=== PATIENT | female | born 1945 | race Caucasian/White ===

== ENCOUNTER 2018-01-23 10:45 | Inpatient (IN) | payer OTHER, MEDICAID, MEDICARE ==
[2018-01-23 11:59] LABS: ADD MAN DIFF? NO; BASOPHILS % 0.3 % (0.0-2.0); EOSINOPHILS # 0.2 10^3/ul (0.0-0.5); EOSINOPHILS % 2.4 % (0.0-7.0); HEMATOCRIT 36.9 % (37.0-47.0); HEMOGLOBIN 12.7 g/dl (12.0-16.0); LYMPHOCYTES # 0.6 10^3/ul (0.8-2.9); LYMPHOCYTES % 6.5 % (15.0-51.0); MEAN CORPUSCULAR HEMOGLOBIN 30.8 pg (29.0-33.0); MEAN CORPUSCULAR HGB CONC 34.4 g/dl (32.0-37.0); MEAN CORPUSCULAR VOLUME 89.6 fl (82.0-101.0); MEAN PLATELET VOLUME 8.4 fl (7.4-10.4); MONOCYTE # 0.6 10^3/ul (0.3-0.9); MONOCYTES % 6.1 % (0.0-11.0); NEUTROPHIL # 8.3 10^3/ul (1.6-7.5); NEUTROPHILS % 84.3 % (39.0-77.0); PLATELET COUNT 312 10^3/UL (140-415); RED BLOOD COUNT 4.12 10^6/ul (4.20-5.40); RED CELL DISTRIBUTION WIDTH 13.2 % (11.5-14.5)
[2018-01-23 11:59] LABS: WHITE BLOOD COUNT 9.8 10^3/ul (4.8-10.8)
[2018-01-23 12:22] LABS: INR 1.02; PROTIME 13.5 Sec (11.9-14.9); PT RATIO 1.1
[2018-01-23 12:23] LABS: PARTIAL THROMBOPLASTIN TIME 26.8 Sec (25.0-35.0)
[2018-01-23 12:26] LABS: ALANINE AMINOTRANSFERASE 45 IU/L (13-69); ALBUMIN 3.9 g/dl (3.3-4.9); ALBUMIN/GLOBULIN RATIO 1.18; ALKALINE PHOSPHATASE 92 IU/L (42-121); ANION GAP 21 (8-16); ASPARTATE AMINO TRANSFERASE 47 IU/L (15-46); BILIRUBIN,INDIRECT 0.1 mg/dl (0-1.1); BILIRUBIN,TOTAL 0.1 mg/dl (0.2-1.3); BLOOD UREA NITROGEN 80 mg/dl (7-20); CALCIUM 9.6 mg/dl (8.4-10.2); CARBON DIOXIDE 17 mmol/L (21-31); CHLORIDE 100 mmol/L (97-110); CREATININE 11.31 mg/dl (0.44-1.00); GLUCOSE 99 mg/dl (70-220); LIPASE 58 U/L (23-300); POTASSIUM 5.8 mmol/L (3.5-5.1); SODIUM 132 mmol/L (135-144); TOTAL PROTEIN 7.2 g/dl (6.1-8.1)
[2018-01-23 12:36] LABS: TROPONIN-I < 0.010 ng/ml (0.000-0.120)
[2018-01-23] MEDS: LACTATED RINGER'S 1,000 ML IV ×2 (12:38→17:45)
[2018-01-23] MEDS: ALBUTEROL 0.083% (NEB) 2.5 MG/3 ML AMP HHN (13:42)
[2018-01-23] MEDS: DEXTROSE 50% 50 ML SYRINGE IV (15:47)
[2018-01-23] MEDS: INSULIN REGULAR, HUMAN 100 UNIT/1 ML 3ML VIAL IVP (15:52)
[2018-01-23] MEDS: CEFTRIAXONE 1 GM/50 ML (PMX) 50 ML IVPB (15:52)
[2018-01-23] MEDS: TOLTERODINE (SR) 4 MG CAP PO (16:30)
[2018-01-23] MEDS ORDERED: morphine 2 MG INJ IV (17:00)
[2018-01-23] MEDS ORDERED: NACL 0.9% 3 ML SYG IV (17:00)
[2018-01-23] MEDS ORDERED: BISACODYL 10 MG SUPP PR (17:00)
[2018-01-23] MEDS ORDERED: DOCUSATE SODIUM 100 MG CAP PO (17:00)
[2018-01-23 18:25] LABS: ANION GAP 17 (8-16); BLOOD UREA NITROGEN 80 mg/dl (7-20); CARBON DIOXIDE 17 mmol/L (21-31); CHLORIDE 102 mmol/L (97-110); CREATININE 11.07 mg/dl (0.44-1.00); GLUCOSE 63 mg/dl (70-220); POTASSIUM 5.8 mmol/L (3.5-5.1); SODIUM 130 mmol/L (135-144)
[2018-01-23] MEDS: ACETAMINOPHEN 325 MG TAB PO (20:03)
[2018-01-23] MEDS: ONDANSETRON 4 MG INJ IV (20:06)
[2018-01-23] MEDS: ATORVASTATIN 10 MG TAB PO (22:18)
[2018-01-24] MEDS: ONDANSETRON 4 MG INJ IV ×2 (02:56→18:57)
[2018-01-24] MEDS: PANTOPRAZOLE (EC) 40 MG TAB PO (06:00)
[2018-01-24 07:36] LABS: ADD MAN DIFF? NO
[2018-01-24 07:43] LABS: WHITE BLOOD COUNT 8.3 10^3/ul (4.8-10.8)
[2018-01-24 07:43] LABS: BASOPHILS % 0.4 % (0.0-2.0); EOSINOPHILS # 0.2 10^3/ul (0.0-0.5); EOSINOPHILS % 2.8 % (0.0-7.0); HEMATOCRIT 33.2 % (37.0-47.0); HEMOGLOBIN 11.1 g/dl (12.0-16.0); LYMPHOCYTES # 0.9 10^3/ul (0.8-2.9); LYMPHOCYTES % 10.8 % (15.0-51.0); MEAN CORPUSCULAR HEMOGLOBIN 30.2 pg (29.0-33.0); MEAN CORPUSCULAR HGB CONC 33.4 g/dl (32.0-37.0); MEAN CORPUSCULAR VOLUME 90.5 fl (82.0-101.0); MONOCYTE # 0.7 10^3/ul (0.3-0.9); MONOCYTES % 8.6 % (0.0-11.0); NEUTROPHIL # 6.4 10^3/ul (1.6-7.5); NEUTROPHILS % 76.9 % (39.0-77.0); PLATELET COUNT 297 10^3/UL (140-415); RED BLOOD COUNT 3.67 10^6/ul (4.20-5.40); RED CELL DISTRIBUTION WIDTH 13.4 % (11.5-14.5)
[2018-01-24] MEDS ORDERED: POLYMYXIN/BACITRACIN 1L IRRIG (07:46)
[2018-01-24 08:10] LABS: ALANINE AMINOTRANSFERASE 40 IU/L (13-69); ALBUMIN 3.2 g/dl (3.3-4.9); ALBUMIN/GLOBULIN RATIO 1.23; ALKALINE PHOSPHATASE 77 IU/L (42-121); ANION GAP 20 (8-16); ASPARTATE AMINO TRANSFERASE 37 IU/L (15-46); BLOOD UREA NITROGEN 82 mg/dl (7-20); CARBON DIOXIDE 15 mmol/L (21-31); CHLORIDE 104 mmol/L (97-110); GLUCOSE 59 mg/dl (70-220); MAGNESIUM 2.2 mg/dl (1.7-2.5); SODIUM 133 mmol/L (135-144); TOTAL PROTEIN 5.8 g/dl (6.1-8.1)
[2018-01-24 08:26] LABS: POTASSIUM 5.7 mmol/L (3.5-5.1)
[2018-01-24] MEDS: TOLTERODINE (SR) 4 MG CAP PO (09:00)
[2018-01-24] MEDS: IODIXANOL LOCM 100 ML BTL (10:09)
[2018-01-24] MEDS: DEXTROSE 50% 50 ML SYRINGE IV (10:16)
[2018-01-24] MEDS: MIDAZOLAM 1 MG/ML 2 ML INJ (10:55)
[2018-01-24] MEDS: FENTAnyl 50 MCG/ML VIAL (10:55)
[2018-01-24] MEDS: LIDOCAINE 2% (SDV) 5 ML INJ (10:55)
[2018-01-24] MEDS: PROPOFOL 20 ML (10:55)
[2018-01-24] MEDS: CEFAZOLIN 1 GM/50 ML (PMX) 50 ML IVPB (11:18)
[2018-01-24] MEDS: LIDOCAINE 1%/EPI 30 ML INJ (11:18)
[2018-01-24 13:13] LABS: ADD UMIC YES; UR ASCORBIC ACID NEGATIVE (NEGATIVE); UR BACTERIA MODERATE /HPF (NONE SEEN); UR BILIRUBIN (Dip) NEGATIVE (NEGATIVE); UR BLOOD (Dip) 2+ mg/dL (NEGATIVE); UR CLARITY CLOUDY (CLEAR); UR COLOR RED (YELLOW); UR GLUCOSE (Dip) 1+ mg/dL (NEGATIVE); UR KETONES (Dip) NEGATIVE (NEGATIVE); UR LEUKOCYTE ESTERASE (Dip) NEGATIVE Leu/ul (NEGATIVE); UR NITRITE (Dip) POSITIVE (NEGATIVE); UR NONSQUAMOUS EPITHELIAL CELL 4 /HPF (NONE SEEN); UR RBC > 182 /HPF (0-5); UR SPECIFIC GRAVITY (Dip) 1.033 (1.003-1.030); UR TOTAL PROTEIN (Dip) 2+ mg/dl (NEGATIVE); UR UROBILINOGEN (Dip) NEGATIVE (NEGATIVE); UR WBC > 182 /HPF (0-5)
[2018-01-24] MEDS: LACTATED RINGER'S 1,000 ML IV (15:13)
[2018-01-24] MEDS: CEFTRIAXONE 1 GM/50 ML (PMX) 50 ML IVPB (17:23)
[2018-01-24] MEDS: ATORVASTATIN 10 MG TAB PO (21:04)
[2018-01-25] MEDS: PANTOPRAZOLE (EC) 40 MG TAB PO (05:26)
[2018-01-25] MEDS: SOD CHLORIDE 0.9% 1,000 ML IV ×2 (07:06→17:15)
[2018-01-25 07:29] LABS: ADD MAN DIFF? NO
[2018-01-25 07:37] LABS: WHITE BLOOD COUNT 7.6 10^3/ul (4.8-10.8)
[2018-01-25 07:37] LABS: BASOPHILS % 0.5 % (0.0-2.0); EOSINOPHILS # 0.2 10^3/ul (0.0-0.5); EOSINOPHILS % 2.6 % (0.0-7.0); HEMATOCRIT 36.3 % (37.0-47.0); LYMPHOCYTES # 0.9 10^3/ul (0.8-2.9); MEAN CORPUSCULAR HEMOGLOBIN 29.6 pg (29.0-33.0); MEAN CORPUSCULAR HGB CONC 33.1 g/dl (32.0-37.0); MEAN CORPUSCULAR VOLUME 89.4 fl (82.0-101.0); MEAN PLATELET VOLUME 8.6 fl (7.4-10.4); MONOCYTE # 0.6 10^3/ul (0.3-0.9); MONOCYTES % 8.5 % (0.0-11.0); NEUTROPHIL # 5.8 10^3/ul (1.6-7.5); PLATELET COUNT 298 10^3/UL (140-415); RED BLOOD COUNT 4.06 10^6/ul (4.20-5.40); RED CELL DISTRIBUTION WIDTH 13.7 % (11.5-14.5)
[2018-01-25 07:59] LABS: ANION GAP 19 (8-16); BLOOD UREA NITROGEN 67 mg/dl (7-20); CALCIUM 9.2 mg/dl (8.4-10.2); CARBON DIOXIDE 17 mmol/L (21-31); CHLORIDE 109 mmol/L (97-110); CREATININE 8.63 mg/dl (0.44-1.00); GLUCOSE 78 mg/dl (70-220); POTASSIUM 5.2 mmol/L (3.5-5.1); SODIUM 140 mmol/L (135-144)
[2018-01-25 08:01] LABS: PHOSPHORUS 7.3 mg/dl (2.5-4.9)
[2018-01-25 08:01] LABS: MAGNESIUM 1.9 mg/dl (1.7-2.5)
[2018-01-25] MEDS: TOLTERODINE (SR) 4 MG CAP PO (09:03)
[2018-01-25] MEDS: CEFTRIAXONE 1 GM/50 ML (PMX) 50 ML IVPB (17:15)
[2018-01-25] MEDS: SEVELAMER CARBONATE 800 MG TABLET PO (17:15)
[2018-01-25] MEDS: ACETAMINOPHEN 325 MG TAB PO (17:18)
[2018-01-25] MEDS: ATORVASTATIN 10 MG TAB PO (21:27)
[2018-01-26] MEDS: SOD CHLORIDE 0.9% 1,000 ML IV ×3 (02:17→21:54)
[2018-01-26] MEDS: PANTOPRAZOLE (EC) 40 MG TAB PO (06:20)
[2018-01-26 08:08] LABS: ADD MAN DIFF? NO
[2018-01-26 08:18] LABS: WHITE BLOOD COUNT 9.3 10^3/ul (4.8-10.8)
[2018-01-26 08:18] LABS: BASOPHILS % 0.4 % (0.0-2.0); EOSINOPHILS # 0.2 10^3/ul (0.0-0.5); EOSINOPHILS % 2.5 % (0.0-7.0); HEMATOCRIT 35.8 % (37.0-47.0); HEMOGLOBIN 11.8 g/dl (12.0-16.0); LYMPHOCYTES # 0.9 10^3/ul (0.8-2.9); LYMPHOCYTES % 9.3 % (15.0-51.0); MEAN CORPUSCULAR HEMOGLOBIN 29.9 pg (29.0-33.0); MEAN CORPUSCULAR VOLUME 90.9 fl (82.0-101.0); MEAN PLATELET VOLUME 8.6 fl (7.4-10.4); MONOCYTE # 0.7 10^3/ul (0.3-0.9); MONOCYTES % 7.5 % (0.0-11.0); NEUTROPHIL # 7.4 10^3/ul (1.6-7.5); NEUTROPHILS % 79.9 % (39.0-77.0); PLATELET COUNT 294 10^3/UL (140-415); RED BLOOD COUNT 3.94 10^6/ul (4.20-5.40); RED CELL DISTRIBUTION WIDTH 13.5 % (11.5-14.5)
[2018-01-26 08:43] LABS: ANION GAP 14 (8-16); BLOOD UREA NITROGEN 53 mg/dl (7-20); CARBON DIOXIDE 16 mmol/L (21-31); CHLORIDE 113 mmol/L (97-110); CREATININE 6.62 mg/dl (0.44-1.00); GLUCOSE 79 mg/dl (70-220); MAGNESIUM 1.6 mg/dl (1.7-2.5); SODIUM 138 mmol/L (135-144)
[2018-01-26] MEDS: TOLTERODINE (SR) 4 MG CAP PO (08:44)
[2018-01-26] MEDS: SEVELAMER CARBONATE 800 MG TABLET PO (08:44)
[2018-01-26] MEDS: MAGNESIUM OXIDE 400 MG TAB PO (14:21)
[2018-01-26] MEDS: ACETAMINOPHEN 325 MG TAB PO (14:26)
[2018-01-26] MEDS: CEFTRIAXONE 1 GM/50 ML (PMX) 50 ML IVPB (17:05)
[2018-01-26] MEDS: ATORVASTATIN 10 MG TAB PO (21:54)
[2018-01-27] MEDS: SOD CHLORIDE 0.9% 1,000 ML IV ×3 (02:00→18:30)
[2018-01-27] MEDS: PANTOPRAZOLE (EC) 40 MG TAB PO (06:04)
[2018-01-27] MEDS: TOLTERODINE (SR) 4 MG CAP PO (09:10)
[2018-01-27 09:58] LABS: MAGNESIUM 1.5 mg/dl (1.7-2.5)
[2018-01-27 09:59] LABS: ANION GAP 15 (8-16); BLOOD UREA NITROGEN 41 mg/dl (7-20); CALCIUM 8.9 mg/dl (8.4-10.2); CARBON DIOXIDE 17 mmol/L (21-31); CHLORIDE 113 mmol/L (97-110); CREATININE 4.14 mg/dl (0.44-1.00); GLUCOSE 59 mg/dl (70-220); POTASSIUM 5.5 mmol/L (3.5-5.1); SODIUM 139 mmol/L (135-144)
[2018-01-27] MEDS: MAGNESIUM SULFATE 3 GM in DEXTROSE 5% 100 ML IVPB (17:17)
[2018-01-27] MEDS: ACETAMINOPHEN 325 MG TAB PO (17:25)
[2018-01-27] MEDS: ATORVASTATIN 10 MG TAB PO (21:00)
[2018-01-28] MEDS: ACETAMINOPHEN 325 MG TAB PO (03:03)
[2018-01-28] MEDS: ONDANSETRON 4 MG INJ IV (03:03)
[2018-01-28] MEDS: SOD CHLORIDE 0.9% 1,000 ML IV ×2 (04:43→13:39)
[2018-01-28] MEDS: PANTOPRAZOLE (EC) 40 MG TAB PO (06:17)
[2018-01-28 08:28] LABS: MAGNESIUM 2.4 mg/dl (1.7-2.5)
[2018-01-28 08:32] LABS: ANION GAP 11 (8-16); BLOOD UREA NITROGEN 29 mg/dl (7-20); CALCIUM 8.6 mg/dl (8.4-10.2); CARBON DIOXIDE 18 mmol/L (21-31); CHLORIDE 111 mmol/L (97-110); CREATININE 2.89 mg/dl (0.44-1.00); GLUCOSE 104 mg/dl (70-220); POTASSIUM 4.4 mmol/L (3.5-5.1); SODIUM 136 mmol/L (135-144)
[2018-01-28] MEDS ORDERED: POTASSIUM CHLORIDE (SR) 20 MEQ TAB PO (08:42)
[2018-01-28] MEDS: morphine LIQ (10 MG/5 ML) CUP PO (11:17)
[2018-01-28] MEDS: TOLTERODINE (SR) 4 MG CAP PO (11:17)
[2018-01-28] MEDS: ERGOCALCIFEROL 50,000 UNIT CAP PO (11:17)
[2018-01-28] MEDS: DEXTROSE 5%-0.45% NACL 1,000 ML IV (18:00)
[2018-01-28] MEDS ORDERED: MIDAZOLAM 1 MG/ML 2 ML INJ (19:53)
[2018-01-28] MEDS ORDERED: CEFAZOLIN 1 GM INJ (19:53)
[2018-01-28] MEDS ORDERED: PROPOFOL 20 ML (19:53)
[2018-01-28] MEDS ORDERED: FENTAnyl 50 MCG/ML VIAL (19:53)
[2018-01-28] MEDS ORDERED: PHENYLephrine (100 MCG/ML) 5ML SYG (20:06)
[2018-01-28] MEDS ORDERED: ONDANSETRON 4 MG INJ (20:29)
[2018-01-28] MEDS ORDERED: DEXAMETHASONE 4 MG/ML 1 ML INJ (20:29)
[2018-01-28] MEDS ORDERED: EPHEDrine SULFATE 50 MG/5 ML SYG IV (20:30)
[2018-01-28] MEDS ORDERED: hydrALAzine 20 MG INJ IV (20:30)
[2018-01-28] MEDS ORDERED: IPRATROPIUM (NEB) 0.5 MG/2.5 ML AMP HHN (20:30)
[2018-01-28] MEDS ORDERED: HYDROmorphONE 1 MG/5 ML IV SYRINGE IV ×2 (20:30)
[2018-01-28] MEDS ORDERED: ONDANSETRON 4 MG INJ IV (20:30)
[2018-01-28] MEDS ORDERED: FENTAnyl 50 MCG/ML VIAL IV ×3 (20:30)
[2018-01-28] MEDS ORDERED: LABETALOL HCL 20MG INJ IV (20:30)
[2018-01-28] MEDS ORDERED: ALBUTEROL 0.083% (NEB) 2.5 MG/3 ML AMP HHN (20:30)
[2018-01-28] MEDS ORDERED: EPHEDrine 25 MG/5 ML SYG (20:33)
[2018-01-28] MEDS: ATORVASTATIN 10 MG TAB PO (22:57)
[2018-01-29] MEDS: DEXTROSE 5%-0.45% NACL 1,000 ML IV ×4 (01:10→21:30)
[2018-01-29] MEDS: PANTOPRAZOLE (EC) 40 MG TAB PO (05:12)
[2018-01-29 07:28] LABS: ADD MAN DIFF? NO
[2018-01-29 07:37] LABS: WHITE BLOOD COUNT 9.4 10^3/ul (4.8-10.8)
[2018-01-29 07:37] LABS: ABNORMAL IP MESSAGE 1; BASOPHILS % 0.1 % (0.0-2.0); HEMATOCRIT 33.7 % (37.0-47.0); HEMOGLOBIN 11.1 g/dl (12.0-16.0); LYMPHOCYTES # 0.3 10^3/ul (0.8-2.9); LYMPHOCYTES % 3.1 % (15.0-51.0); MEAN CORPUSCULAR HEMOGLOBIN 29.8 pg (29.0-33.0); MEAN CORPUSCULAR HGB CONC 32.9 g/dl (32.0-37.0); MEAN CORPUSCULAR VOLUME 90.3 fl (82.0-101.0); MEAN PLATELET VOLUME 8.5 fl (7.4-10.4); MONOCYTE # 0.6 10^3/ul (0.3-0.9); MONOCYTES % 6.4 % (0.0-11.0); NEUTROPHIL # 8.4 10^3/ul (1.6-7.5); NEUTROPHILS % 89.8 % (39.0-77.0); PLATELET COUNT 206 10^3/UL (140-415); RED BLOOD COUNT 3.73 10^6/ul (4.20-5.40); RED CELL DISTRIBUTION WIDTH 13.7 % (11.5-14.5)
[2018-01-29 07:50] LABS: POSITIVE DIFF @See below
[2018-01-29 08:08] LABS: ANION GAP 14 (8-16); BLOOD UREA NITROGEN 32 mg/dl (7-20); CALCIUM 8.8 mg/dl (8.4-10.2); CARBON DIOXIDE 18 mmol/L (21-31); CHLORIDE 107 mmol/L (97-110); CREATININE 3.79 mg/dl (0.44-1.00); GLUCOSE 188 mg/dl (70-220); POTASSIUM 5.2 mmol/L (3.5-5.1); SODIUM 134 mmol/L (135-144)
[2018-01-29] MEDS: TOLTERODINE (SR) 4 MG CAP PO (08:31)
[2018-01-29] MEDS: ONDANSETRON 4 MG INJ IV (09:59)
[2018-01-29] MEDS: morphine LIQ (10 MG/5 ML) CUP PO (15:17)
[2018-01-29] MEDS: MAGNESIUM HYDROXIDE 30ML CUP PO (17:12)
[2018-01-29] MEDS: ATORVASTATIN 10 MG TAB PO (21:30)
[2018-01-30] MEDS: PANTOPRAZOLE (EC) 40 MG TAB PO (05:43)
[2018-01-30] MEDS: DEXTROSE 5%-0.45% NACL 1,000 ML IV ×2 (08:16→21:35)
[2018-01-30] MEDS: TOLTERODINE (SR) 4 MG CAP PO (08:16)
[2018-01-30 09:12] LABS: ADD MAN DIFF? NO
[2018-01-30 09:23] LABS: BASOPHILS % 0.2 % (0.0-2.0); EOSINOPHILS # 0.3 10^3/ul (0.0-0.5); EOSINOPHILS % 1.9 % (0.0-7.0); HEMATOCRIT 30.6 % (37.0-47.0); HEMOGLOBIN 10.1 g/dl (12.0-16.0); LYMPHOCYTES % 7.5 % (15.0-51.0); MEAN CORPUSCULAR HEMOGLOBIN 29.8 pg (29.0-33.0); MEAN CORPUSCULAR VOLUME 90.3 fl (82.0-101.0); MEAN PLATELET VOLUME 9.1 fl (7.4-10.4); MONOCYTE # 0.8 10^3/ul (0.3-0.9); MONOCYTES % 5.9 % (0.0-11.0); NEUTROPHILS % 84.1 % (39.0-77.0); PLATELET COUNT 226 10^3/UL (140-415); RED BLOOD COUNT 3.39 10^6/ul (4.20-5.40); RED CELL DISTRIBUTION WIDTH 13.8 % (11.5-14.5)
[2018-01-30 09:23] LABS: WHITE BLOOD COUNT 13.1 10^3/ul (4.8-10.8)
[2018-01-30 09:38] LABS: ANION GAP 13 (8-16); BLOOD UREA NITROGEN 37 mg/dl (7-20); CALCIUM 8.4 mg/dl (8.4-10.2); CARBON DIOXIDE 19 mmol/L (21-31); CHLORIDE 105 mmol/L (97-110); CREATININE 5.17 mg/dl (0.44-1.00); GLUCOSE 106 mg/dl (70-220); POTASSIUM 4.2 mmol/L (3.5-5.1); SODIUM 133 mmol/L (135-144)
[2018-01-30] MEDS: ATORVASTATIN 10 MG TAB PO (20:59)
[2018-01-31] MEDS: DEXTROSE 5%-0.45% NACL 1,000 ML IV ×4 (04:19→17:24)
[2018-01-31] MEDS: PANTOPRAZOLE (EC) 40 MG TAB PO (05:29)
[2018-01-31 08:10] LABS: ADD MAN DIFF? NO
[2018-01-31 08:13] LABS: WHITE BLOOD COUNT 11.8 10^3/ul (4.8-10.8)
[2018-01-31 08:13] LABS: BASOPHILS % 0.1 % (0.0-2.0); EOSINOPHILS # 0.2 10^3/ul (0.0-0.5); EOSINOPHILS % 1.5 % (0.0-7.0); HEMATOCRIT 30.9 % (37.0-47.0); HEMOGLOBIN 9.9 g/dl (12.0-16.0); LYMPHOCYTES # 0.6 10^3/ul (0.8-2.9); LYMPHOCYTES % 5.3 % (15.0-51.0); MEAN CORPUSCULAR HEMOGLOBIN 29.4 pg (29.0-33.0); MEAN CORPUSCULAR VOLUME 91.7 fl (82.0-101.0); MEAN PLATELET VOLUME 9.1 fl (7.4-10.4); MONOCYTE # 0.7 10^3/ul (0.3-0.9); MONOCYTES % 6.3 % (0.0-11.0); NEUTROPHIL # 10.2 10^3/ul (1.6-7.5); NEUTROPHILS % 86.2 % (39.0-77.0); PLATELET COUNT 200 10^3/UL (140-415); RED BLOOD COUNT 3.37 10^6/ul (4.20-5.40); RED CELL DISTRIBUTION WIDTH 13.7 % (11.5-14.5)
[2018-01-31] MEDS: TOLTERODINE (SR) 4 MG CAP PO (08:16)
[2018-01-31 08:32] LABS: ANION GAP 12 (8-16); BLOOD UREA NITROGEN 40 mg/dl (7-20); CALCIUM 8.2 mg/dl (8.4-10.2); CARBON DIOXIDE 18 mmol/L (21-31); CHLORIDE 103 mmol/L (97-110); CREATININE 6.18 mg/dl (0.44-1.00); GLUCOSE 108 mg/dl (70-220); POTASSIUM 4.5 mmol/L (3.5-5.1); SODIUM 128 mmol/L (135-144)
[2018-01-31 08:33] LABS: PHOSPHORUS 5.4 mg/dl (2.5-4.9)
[2018-01-31 08:33] LABS: MAGNESIUM 2.4 mg/dl (1.7-2.5)
[2018-01-31] MEDS: ONDANSETRON 4 MG INJ IV (13:28)
[2018-01-31] MEDS: morphine LIQ (10 MG/5 ML) CUP PO (17:24)
[2018-01-31] MEDS: ATORVASTATIN 10 MG TAB PO (20:59)
[2018-02-01] MEDS: DEXTROSE 5%-0.45% NACL 1,000 ML IV ×5 (00:30→20:30)
[2018-02-01] MEDS: PANTOPRAZOLE (EC) 40 MG TAB PO (06:00)
[2018-02-01] MEDS: TOLTERODINE (SR) 4 MG CAP PO ×2 (08:18→12:54)
[2018-02-01] MEDS: ONDANSETRON 4 MG INJ IV ×2 (08:31→18:12)
[2018-02-01 10:02] LABS: ADD MAN DIFF? NO
[2018-02-01 10:05] LABS: WHITE BLOOD COUNT 13.3 10^3/ul (4.8-10.8)
[2018-02-01 10:05] LABS: ABNORMAL IP MESSAGE 1; BASOPHILS % 0.2 % (0.0-2.0); EOSINOPHILS # 0.2 10^3/ul (0.0-0.5); EOSINOPHILS % 1.4 % (0.0-7.0); HEMATOCRIT 29.1 % (37.0-47.0); HEMOGLOBIN 9.6 g/dl (12.0-16.0); LYMPHOCYTES # 0.3 10^3/ul (0.8-2.9); LYMPHOCYTES % 2.4 % (15.0-51.0); MEAN CORPUSCULAR HEMOGLOBIN 29.3 pg (29.0-33.0); MEAN CORPUSCULAR VOLUME 88.7 fl (82.0-101.0); MEAN PLATELET VOLUME 8.9 fl (7.4-10.4); MONOCYTE # 1.4 10^3/ul (0.3-0.9); MONOCYTES % 10.8 % (0.0-11.0); NEUTROPHIL # 11.2 10^3/ul (1.6-7.5); NEUTROPHILS % 84.4 % (39.0-77.0); PLATELET COUNT 218 10^3/UL (140-415); RED BLOOD COUNT 3.28 10^6/ul (4.20-5.40); RED CELL DISTRIBUTION WIDTH 13.4 % (11.5-14.5)
[2018-02-01 10:07] LABS: POSITIVE DIFF @See below
[2018-02-01 10:20] LABS: ANION GAP 13 (8-16); BLOOD UREA NITROGEN 43 mg/dl (7-20); CALCIUM 8.2 mg/dl (8.4-10.2); CARBON DIOXIDE 16 mmol/L (21-31); CHLORIDE 101 mmol/L (97-110); CREATININE 6.68 mg/dl (0.44-1.00); GLUCOSE 125 mg/dl (70-220); POTASSIUM 4.5 mmol/L (3.5-5.1); SODIUM 125 mmol/L (135-144)
[2018-02-01 10:23] LABS: MAGNESIUM 2.1 mg/dl (1.7-2.5)
[2018-02-01 10:23] LABS: PHOSPHORUS 5.2 mg/dl (2.5-4.9)
[2018-02-01] MEDS: ACETAMINOPHEN 325 MG TAB PO (12:54)
[2018-02-01] MEDS: ATORVASTATIN 10 MG TAB PO (20:54)
[2018-02-02] MEDS: DEXTROSE 5%-0.45% NACL 1,000 ML IV ×2 (05:05→16:32)
[2018-02-02] MEDS: ONDANSETRON 4 MG INJ IV (05:59)
[2018-02-02] MEDS: PANTOPRAZOLE (EC) 40 MG TAB PO (06:00)
[2018-02-02] MEDS: FENTAnyl 50 MCG/ML VIAL (08:33)
[2018-02-02] MEDS: SOD CHLORIDE 0.9% 500 ML (08:33)
[2018-02-02] MEDS: MIDAZOLAM 1 MG/ML 2 ML INJ (08:33)
[2018-02-02] MEDS: IOHEXOL 300MG/ML 150 ML BTL (08:33)
[2018-02-02] MEDS: LIDOCAINE 1% (MDV) 10 ML INJ (08:33)
[2018-02-02 08:59] LABS: ADD MAN DIFF? NO
[2018-02-02] MEDS: TOLTERODINE (SR) 4 MG CAP PO (08:59)
[2018-02-02 09:02] LABS: ABNORMAL IP MESSAGE 1; BASOPHILS % 0.1 % (0.0-2.0); EOSINOPHILS # 0.1 10^3/ul (0.0-0.5); EOSINOPHILS % 0.4 % (0.0-7.0); HEMATOCRIT 32.7 % (37.0-47.0); HEMOGLOBIN 10.8 g/dl (12.0-16.0); LYMPHOCYTES # 0.3 10^3/ul (0.8-2.9); LYMPHOCYTES % 2.2 % (15.0-51.0); MEAN CORPUSCULAR HEMOGLOBIN 29.3 pg (29.0-33.0); MEAN CORPUSCULAR VOLUME 88.9 fl (82.0-101.0); MEAN PLATELET VOLUME 9.3 fl (7.4-10.4); MONOCYTE # 1.4 10^3/ul (0.3-0.9); MONOCYTES % 10.4 % (0.0-11.0); NEUTROPHILS % 86.4 % (39.0-77.0); PLATELET COUNT 252 10^3/UL (140-415); RED BLOOD COUNT 3.68 10^6/ul (4.20-5.40); RED CELL DISTRIBUTION WIDTH 13.3 % (11.5-14.5)
[2018-02-02 09:02] LABS: WHITE BLOOD COUNT 13.8 10^3/ul (4.8-10.8)
[2018-02-02 09:05] LABS: POSITIVE DIFF @See below
[2018-02-02 09:30] LABS: ALANINE AMINOTRANSFERASE 22 IU/L (13-69); ALBUMIN 2.4 g/dl (3.3-4.9); ALKALINE PHOSPHATASE 114 IU/L (42-121); ANION GAP 16 (8-16); ASPARTATE AMINO TRANSFERASE 30 IU/L (15-46); BILIRUBIN,INDIRECT 0.3 mg/dl (0-1.1); BILIRUBIN,TOTAL 0.3 mg/dl (0.2-1.3); BLOOD UREA NITROGEN 46 mg/dl (7-20); CALCIUM 8.4 mg/dl (8.4-10.2); CARBON DIOXIDE 15 mmol/L (21-31); CHLORIDE 99 mmol/L (97-110); CREATININE 7.17 mg/dl (0.44-1.00); GLUCOSE 131 mg/dl (70-220); POTASSIUM 4.6 mmol/L (3.5-5.1); SODIUM 125 mmol/L (135-144); TOTAL PROTEIN 4.8 g/dl (6.1-8.1)
[2018-02-02 09:52] LABS: MAGNESIUM 2.2 mg/dl (1.7-2.5)
[2018-02-02 09:52] LABS: PHOSPHORUS 4.8 mg/dl (2.5-4.9)
[2018-02-02] MEDS ORDERED: hydrALAzine 20 MG INJ IV (11:30)
[2018-02-02] MEDS: ATORVASTATIN 10 MG TAB PO (20:37)
[2018-02-03] MEDS: DEXTROSE 5%-0.45% NACL 1,000 ML IV ×3 (03:51→17:41)
[2018-02-03] MEDS: PANTOPRAZOLE (EC) 40 MG TAB PO (05:42)
[2018-02-03 06:24] LABS: ADD MAN DIFF? NO
[2018-02-03 06:30] LABS: ABNORMAL IP MESSAGE 1; BASOPHILS % 0.1 % (0.0-2.0); EOSINOPHILS # 0.1 10^3/ul (0.0-0.5); EOSINOPHILS % 0.7 % (0.0-7.0); HEMATOCRIT 26.8 % (37.0-47.0); HEMOGLOBIN 9.1 g/dl (12.0-16.0); LYMPHOCYTES # 0.4 10^3/ul (0.8-2.9); LYMPHOCYTES % 3.9 % (15.0-51.0); MEAN CORPUSCULAR HEMOGLOBIN 29.4 pg (29.0-33.0); MEAN CORPUSCULAR VOLUME 86.5 fl (82.0-101.0); MEAN PLATELET VOLUME 9.2 fl (7.4-10.4); MONOCYTE # 1.6 10^3/ul (0.3-0.9); MONOCYTES % 14.7 % (0.0-11.0); NEUTROPHIL # 8.6 10^3/ul (1.6-7.5); NEUTROPHILS % 80.1 % (39.0-77.0); PLATELET COUNT 243 10^3/UL (140-415); RED CELL DISTRIBUTION WIDTH 13.6 % (11.5-14.5)
[2018-02-03 06:30] LABS: WHITE BLOOD COUNT 10.8 10^3/ul (4.8-10.8)
[2018-02-03 06:32] LABS: POSITIVE DIFF @See below
[2018-02-03 06:51] LABS: ANION GAP 11 (8-16); BLOOD UREA NITROGEN 34 mg/dl (7-20); CALCIUM 8.3 mg/dl (8.4-10.2); CARBON DIOXIDE 19 mmol/L (21-31); CHLORIDE 108 mmol/L (97-110); CREATININE 3.33 mg/dl (0.44-1.00); GLUCOSE 125 mg/dl (70-220); POTASSIUM 3.5 mmol/L (3.5-5.1); SODIUM 134 mmol/L (135-144)
[2018-02-03 06:56] LABS: PHOSPHORUS 3.3 mg/dl (2.5-4.9)
[2018-02-03 06:56] LABS: MAGNESIUM 1.6 mg/dl (1.7-2.5)
[2018-02-03] MEDS: TOLTERODINE (SR) 4 MG CAP PO (09:33)
[2018-02-03] MEDS: MAGNESIUM SULFATE 2 GM/50 ML 50 ML IVPB (11:22)
[2018-02-03] MEDS: ATORVASTATIN 10 MG TAB PO (21:20)
[2018-02-04] MEDS: ALBUTEROL/IPRATROPIUM (NEB) 3 ML AMP HHN (01:05)
[2018-02-04] MEDS: DEXTROSE 5%-0.45% NACL 1,000 ML IV ×2 (03:51→17:28)
[2018-02-04] MEDS: PANTOPRAZOLE (EC) 40 MG TAB PO (05:52)
[2018-02-04] MEDS: morphine LIQ (10 MG/5 ML) CUP PO (08:36)
[2018-02-04] MEDS: TOLTERODINE (SR) 4 MG CAP PO (08:36)
[2018-02-04] MEDS: ERGOCALCIFEROL 50,000 UNIT CAP PO (08:37)
[2018-02-04 09:20] LABS: ADD MAN DIFF? NO
[2018-02-04 09:32] LABS: BASOPHILS % 0.2 % (0.0-2.0); EOSINOPHILS # 0.1 10^3/ul (0.0-0.5); EOSINOPHILS % 1.1 % (0.0-7.0); HEMATOCRIT 25.7 % (37.0-47.0); HEMOGLOBIN 8.7 g/dl (12.0-16.0); LYMPHOCYTES # 0.6 10^3/ul (0.8-2.9); LYMPHOCYTES % 7.2 % (15.0-51.0); MEAN CORPUSCULAR HEMOGLOBIN 29.3 pg (29.0-33.0); MEAN CORPUSCULAR HGB CONC 33.9 g/dl (32.0-37.0); MEAN CORPUSCULAR VOLUME 86.5 fl (82.0-101.0); MEAN PLATELET VOLUME 9.3 fl (7.4-10.4); MONOCYTE # 1.3 10^3/ul (0.3-0.9); MONOCYTES % 15.2 % (0.0-11.0); NEUTROPHIL # 6.4 10^3/ul (1.6-7.5); NEUTROPHILS % 75.6 % (39.0-77.0); PLATELET COUNT 247 10^3/UL (140-415); RED BLOOD COUNT 2.97 10^6/ul (4.20-5.40); RED CELL DISTRIBUTION WIDTH 13.8 % (11.5-14.5)
[2018-02-04 09:32] LABS: WHITE BLOOD COUNT 8.5 10^3/ul (4.8-10.8)
[2018-02-04 10:11] LABS: MAGNESIUM 1.4 mg/dl (1.7-2.5)
[2018-02-04 10:11] LABS: PHOSPHORUS 2.3 mg/dl (2.5-4.9)
[2018-02-04 10:13] LABS: ANION GAP 10 (8-16); BLOOD UREA NITROGEN 18 mg/dl (7-20); CALCIUM 8.1 mg/dl (8.4-10.2); CARBON DIOXIDE 23 mmol/L (21-31); CHLORIDE 105 mmol/L (97-110); CREATININE 1.31 mg/dl (0.44-1.00); GLUCOSE 130 mg/dl (70-220); SODIUM 135 mmol/L (135-144)
[2018-02-04 10:41] LABS: POTASSIUM 2.8 mmol/L (3.5-5.1)
[2018-02-04] MEDS: POTASSIUM CHLORIDE (SR) 20 MEQ TAB PO ×2 (12:41→13:30)
[2018-02-04] MEDS: MAGNESIUM SULFATE 4 GM/100 ML 100 ML IVPB (12:41)
[2018-02-04 16:30] LABS: ANION GAP 8 (8-16); BLOOD UREA NITROGEN 15 mg/dl (7-20); CARBON DIOXIDE 26 mmol/L (21-31); CHLORIDE 105 mmol/L (97-110); CREATININE 1.09 mg/dl (0.44-1.00); GLUCOSE 110 mg/dl (70-220); POTASSIUM 3.5 mmol/L (3.5-5.1); SODIUM 135 mmol/L (135-144)
[2018-02-04 16:44] LABS: MAGNESIUM 2.8 mg/dl (1.7-2.5)
[2018-02-04] MEDS ORDERED: CEFAZOLIN 1 GM INJ (19:56)
[2018-02-04] MEDS ORDERED: PROPOFOL 20 ML (19:56)
[2018-02-04] MEDS ORDERED: GLYCOPYRROLATE 0.4 MG INJ (19:56)
[2018-02-04] MEDS ORDERED: NEOSTIGMINE 3 MG/3 ML SYRINGE (19:56)
[2018-02-04] MEDS ORDERED: ROCURONIUM 50 MG INJ (19:56)
[2018-02-04] MEDS ORDERED: ONDANSETRON 4 MG INJ (19:58)
[2018-02-04] MEDS ORDERED: FENTAnyl 50 MCG/ML VIAL (19:58)
[2018-02-04] MEDS ORDERED: MIDAZOLAM 1 MG/ML 2 ML INJ (19:58)
[2018-02-04] MEDS ORDERED: DEXAMETHASONE 4 MG/ML 1 ML INJ (19:59)
[2018-02-04] MEDS ORDERED: IOHEXOL 300MG/ML 30 ML BTL (20:15)
[2018-02-04] MEDS ORDERED: SUGAMMADEX SODIUM 200 MG/2 ML VIAL IV (20:44)
[2018-02-04] MEDS: ATORVASTATIN 10 MG TAB PO (21:00)
[2018-02-05] MEDS: DEXTROSE 5%-0.45% NACL 1,000 ML IV ×2 (02:13→13:51)
[2018-02-05 05:46] LABS: ADD MAN DIFF? NO
[2018-02-05 05:48] LABS: WHITE BLOOD COUNT 6.6 10^3/ul (4.8-10.8)
[2018-02-05 05:48] LABS: ABNORMAL IP MESSAGE 1; BASOPHILS % 0.2 % (0.0-2.0); HEMATOCRIT 27.7 % (37.0-47.0); HEMOGLOBIN 9.1 g/dl (12.0-16.0); LYMPHOCYTES # 0.3 10^3/ul (0.8-2.9); LYMPHOCYTES % 5.1 % (15.0-51.0); MEAN CORPUSCULAR HEMOGLOBIN 28.4 pg (29.0-33.0); MEAN CORPUSCULAR HGB CONC 32.9 g/dl (32.0-37.0); MEAN CORPUSCULAR VOLUME 86.6 fl (82.0-101.0); MEAN PLATELET VOLUME 8.9 fl (7.4-10.4); MONOCYTE # 0.2 10^3/ul (0.3-0.9); MONOCYTES % 2.9 % (0.0-11.0); PLATELET COUNT 258 10^3/UL (140-415); RED CELL DISTRIBUTION WIDTH 13.8 % (11.5-14.5)
[2018-02-05] MEDS: PANTOPRAZOLE (EC) 40 MG TAB PO (05:49)
[2018-02-05 06:15] LABS: POSITIVE DIFF @See below
[2018-02-05 06:17] LABS: ANION GAP 12 (8-16); BLOOD UREA NITROGEN 15 mg/dl (7-20); CALCIUM 8.1 mg/dl (8.4-10.2); CARBON DIOXIDE 24 mmol/L (21-31); CHLORIDE 104 mmol/L (97-110); CREATININE 0.93 mg/dl (0.44-1.00); GLUCOSE 182 mg/dl (70-220); POTASSIUM 4.1 mmol/L (3.5-5.1); SODIUM 136 mmol/L (135-144)
[2018-02-05 06:27] LABS: MAGNESIUM 2.1 mg/dl (1.7-2.5)
[2018-02-05 06:27] LABS: PHOSPHORUS 2.6 mg/dl (2.5-4.9)
[2018-02-05] MEDS: ONDANSETRON 4 MG INJ (08:14)
[2018-02-05] MEDS: morphine LIQ (10 MG/5 ML) CUP PO (08:19)
[2018-02-05] MEDS: ALBUTEROL/IPRATROPIUM (NEB) 3 ML AMP HHN (08:39)
[2018-02-05] MEDS: MAGNESIUM HYDROXIDE 30ML CUP PO (08:44)
[2018-02-05] MEDS: TOLTERODINE (SR) 4 MG CAP PO (08:44)
[2018-02-05] MEDS ORDERED: ALBUTEROL HFA 8 GM INHALER INH (15:30)
[2018-02-05] MEDS: FLUTICASONE/VILANTEROL 200-25 INH DEVICE INH (17:00)
== END 2018-02-05 19:15 | DRG 744 ==
LOC: E/R 10:45 → PP2 02-02 19:11 → MS3 14:08 → MS4 21:46
PROC: 0UBC7ZX Excision of Cervix, Via Natural or Artificial Opening, Diagnostic (ICD-10-PCS; principal; 2018-01-28 19:30)
PROC: 0UBG7ZX Excision of Vagina, Via Natural or Artificial Opening, Diagnostic (ICD-10-PCS; 2018-01-28 19:30)
PROC: 0UDB7ZZ Extraction of Endometrium, Via Natural or Artificial Opening (ICD-10-PCS; 2018-01-28 19:30)
PROC: 0TJB8ZZ Inspection of Bladder, Via Natural or Artificial Opening Endoscopic (ICD-10-PCS; 2018-01-28 19:30)
PROC: 0T9330Z Drainage of Right Kidney Pelvis with Drainage Device, Percutaneous Approach (ICD-10-PCS; 2018-01-28 19:51)
PROC: 0TJB8ZZ Inspection of Bladder, Via Natural or Artificial Opening Endoscopic (ICD-10-PCS; 2018-01-28 19:51)
PROC: 0T9430Z Drainage of Left Kidney Pelvis with Drainage Device, Percutaneous Approach (ICD-10-PCS; 2018-01-28 19:51)
PROC: 0T9430Z Drainage of Left Kidney Pelvis with Drainage Device, Percutaneous Approach (ICD-10-PCS; 2018-01-28 19:51)
DX: C53.9 Malignant neoplasm of cervix uteri, unspecified (principal); N17.9 Acute kidney failure, unspecified; N13.1 Hydronephrosis with ureteral stricture, not elsewhere classified; C52 Malignant neoplasm of vagina; D49.4 Neoplasm of unspecified behavior of bladder; E78.5 Hyperlipidemia, unspecified; E87.8 Other disorders of electrolyte and fluid balance, not elsewhere classified; E87.6 Hypokalemia; E83.42 Hypomagnesemia; F17.200 Nicotine dependence, unspecified, uncomplicated; N85.8 Other specified noninflammatory disorders of uterus; J44.9 Chronic obstructive pulmonary disease, unspecified; T83.022A Displacement of nephrostomy catheter, initial encounter
CPT/HCPCS: 36415; 71045; 72195; 74176; 74430; 74475; 76775; 76856; 76942; 77301; 77334; 77338; 80048; 80053; 81001; 82962; 83690; 83735; 84100; 84484; 85025; 85610; 85730; 86304; 87086; 88305; 88341; 88342; 93005; 94640; 94664; 96360; 97110; 97116; 97162; 97530; 99291-25

== ENCOUNTER 2018-02-18 16:56 | Inpatient (IN) | payer OTHER, MEDICAID ==
[2018-02-18] MEDS: ONDANSETRON 4 MG INJ IV ×2 (17:37→19:43)
[2018-02-18] MEDS: SOD CHLORIDE 0.9% 1,000 ML IV ×3 (17:37→22:40)
[2018-02-18] MEDS: morphine 4 MG/ML VIAL IV (17:37)
[2018-02-18] MEDS: CEFEPIME 2GM/50 ML (PMX) 50 ML IVPB (17:38)
[2018-02-18 17:49] LABS: ADD MAN DIFF? NO
[2018-02-18 17:51] LABS: BASOPHILS % 0.2 % (0.0-2.0); EOSINOPHILS % 0.1 % (0.0-7.0); HEMATOCRIT 33.7 % (37.0-47.0); HEMOGLOBIN 11.2 g/dl (12.0-16.0); LYMPHOCYTES # 0.6 10^3/ul (0.8-2.9); LYMPHOCYTES % 2.8 % (15.0-51.0); MEAN CORPUSCULAR HEMOGLOBIN 29.1 pg (29.0-33.0); MEAN CORPUSCULAR HGB CONC 33.2 g/dl (32.0-37.0); MEAN CORPUSCULAR VOLUME 87.5 fl (82.0-101.0); MEAN PLATELET VOLUME 9.4 fl (7.4-10.4); MONOCYTE # 1.5 10^3/ul (0.3-0.9); MONOCYTES % 6.6 % (0.0-11.0); NEUTROPHIL # 19.8 10^3/ul (1.6-7.5); NEUTROPHILS % 89.7 % (39.0-77.0); PLATELET COUNT 322 10^3/UL (140-415); RED BLOOD COUNT 3.85 10^6/ul (4.20-5.40); RED CELL DISTRIBUTION WIDTH 14.6 % (11.5-14.5)
[2018-02-18 17:51] LABS: WHITE BLOOD COUNT 22.1 10^3/ul (4.8-10.8)
[2018-02-18 18:06] LABS: LACTIC ACID 1.8 mmol/L (0.5-2.0)
[2018-02-18 18:08] LABS: ADD UMIC YES; UR ASCORBIC ACID NEGATIVE (NEGATIVE); UR BILIRUBIN (Dip) NEGATIVE (NEGATIVE); UR BLOOD (Dip) 2+ mg/dL (NEGATIVE); UR CLARITY CLEAR (CLEAR); UR COLOR YELLOW (YELLOW); UR GLUCOSE (Dip) NEGATIVE (NEGATIVE); UR KETONES (Dip) NEGATIVE (NEGATIVE); UR LEUKOCYTE ESTERASE (Dip) 1+ Leu/ul (NEGATIVE); UR NITRITE (Dip) NEGATIVE (NEGATIVE); UR RBC 37 /HPF (0-5); UR SPECIFIC GRAVITY (Dip) 1.017 (1.003-1.030); UR TOTAL PROTEIN (Dip) 2+ mg/dl (NEGATIVE); UR UROBILINOGEN (Dip) NEGATIVE (NEGATIVE); UR WBC 14 /HPF (0-5)
[2018-02-18 18:11] LABS: ALANINE AMINOTRANSFERASE 74 IU/L (13-69); ALBUMIN 2.7 g/dl (3.3-4.9); ALBUMIN/GLOBULIN RATIO 0.77; ALKALINE PHOSPHATASE 531 IU/L (42-121); ANION GAP 13 (8-16); ASPARTATE AMINO TRANSFERASE 167 IU/L (15-46); BILIRUBIN,INDIRECT 0.4 mg/dl (0-1.1); BILIRUBIN,TOTAL 0.4 mg/dl (0.2-1.3); BLOOD UREA NITROGEN 11 mg/dl (7-20); CARBON DIOXIDE 21 mmol/L (21-31); CHLORIDE 108 mmol/L (97-110); CREATININE 1.01 mg/dl (0.44-1.00); GLUCOSE 120 mg/dl (70-220); INR 1.17; POTASSIUM 3.7 mmol/L (3.5-5.1); PROTIME 15.1 Sec (11.9-14.9); PT RATIO 1.2; SODIUM 138 mmol/L (135-144); TOTAL PROTEIN 6.2 g/dl (6.1-8.1)
[2018-02-18 18:12] LABS: PARTIAL THROMBOPLASTIN TIME 28.6 Sec (25.0-35.0)
[2018-02-18] MEDS ORDERED: ACETAMINOPHEN 325 MG TAB PO ×2 (18:30→19:00)
[2018-02-18] MEDS ORDERED: BISACODYL 10 MG SUPP PR (19:00)
[2018-02-18] MEDS ORDERED: NACL 0.9% 3 ML SYG IV (19:00)
[2018-02-18] MEDS ORDERED: DOCUSATE SODIUM 100 MG CAP PO (19:00)
[2018-02-18] MEDS ORDERED: OXYCODONE/ACETAMINOPHEN (5/325) TAB PO ×2 (19:00)
[2018-02-18] MEDS ORDERED: MAGNESIUM HYDROXIDE 30ML CUP PO (19:00)
[2018-02-18] MEDS: VANCOMYCIN 1 GM (PMX) 250 ML IVPB (19:16)
[2018-02-18] MEDS ORDERED: VANCOMYCIN IV PER PHARMACY XX (19:30)
[2018-02-18] MEDS ORDERED: ALBUTEROL/IPRATROPIUM (NEB) 3 ML AMP HHN (19:30)
[2018-02-18 19:32] LABS: LACTIC ACID 1.6 mmol/L (0.5-2.0)
[2018-02-18] MEDS ORDERED: CEFEPIME 2GM/50 ML (PMX) 50 ML IVPB (21:00)
[2018-02-18] MEDS: FAMOTIDINE 20 MG TAB PO (22:40)
[2018-02-18 23:42] LABS: LACTIC ACID 1.3 mmol/L (0.5-2.0)
[2018-02-19] MEDS: SOD CHLORIDE 0.9% 1,000 ML IV ×2 (04:56→09:05)
[2018-02-19] MEDS: ONDANSETRON 4 MG INJ IV ×4 (05:13→17:38)
[2018-02-19 08:39] LABS: ABNORMAL IP MESSAGE 1; HEMATOCRIT 30.7 % (37.0-47.0); HEMOGLOBIN 9.8 g/dl (12.0-16.0); MEAN CORPUSCULAR HEMOGLOBIN 28.4 pg (29.0-33.0); MEAN CORPUSCULAR HGB CONC 31.9 g/dl (32.0-37.0); PLATELET COUNT 323 10^3/UL (140-415); RED BLOOD COUNT 3.45 10^6/ul (4.20-5.40); RED CELL DISTRIBUTION WIDTH 14.9 % (11.5-14.5)
[2018-02-19 08:56] LABS: POSITIVE DIFF @See below
[2018-02-19 08:57] LABS: ADD MAN DIFF? YES
[2018-02-19 09:04] LABS: ALANINE AMINOTRANSFERASE 72 IU/L (13-69); ALBUMIN 2.3 g/dl (3.3-4.9); ALBUMIN/GLOBULIN RATIO 0.76; ALKALINE PHOSPHATASE 455 IU/L (42-121); ANION GAP 15 (8-16); ASPARTATE AMINO TRANSFERASE 153 IU/L (15-46); BILIRUBIN,INDIRECT 0.3 mg/dl (0-1.1); BILIRUBIN,TOTAL 0.3 mg/dl (0.2-1.3); BLOOD UREA NITROGEN 10 mg/dl (7-20); CALCIUM 7.4 mg/dl (8.4-10.2); CARBON DIOXIDE 15 mmol/L (21-31); CHLORIDE 113 mmol/L (97-110); CREATININE 0.91 mg/dl (0.44-1.00); GLUCOSE 78 mg/dl (70-220); PHOSPHORUS 3.6 mg/dl (2.5-4.9); POTASSIUM 3.1 mmol/L (3.5-5.1); SODIUM 140 mmol/L (135-144); TOTAL PROTEIN 5.3 g/dl (6.1-8.1)
[2018-02-19] MEDS: CEFEPIME 2GM/50 ML (PMX) 50 ML IVPB ×2 (09:04→22:29)
[2018-02-19] MEDS: FAMOTIDINE 20 MG TAB PO (09:05)
[2018-02-19 09:27] LABS: SEGMENTED NEUTROPHILS (M) % 95 % (39-77)
[2018-02-19 09:28] LABS: LYMPHOCYTES #M 0.5 10^3/ul (0.8-2.9); LYMPHOCYTES % (M) 2 % (15-51); MONOCYTE #M 0.8 10^3/ul (0.3-0.9); MONOCYTES % (M) 3 % (0-11); PLATELET ESTIMATE NORMAL; POIKILOCYTOSIS 1+ (0-0); POLYCHROMASIA 2+ (0-0); SMUDGE%M 6 % (0-0)
[2018-02-19] MEDS: MAGNESIUM SULFATE 4 GM/100 ML 100 ML IVPB (12:12)
[2018-02-19] MEDS: SOD CHLORIDE 0.9% 500 ML (15:00)
[2018-02-19] MEDS: ONDANSETRON 4 MG INJ (15:18)
[2018-02-19] MEDS: MIDAZOLAM 1 MG/ML 2 ML INJ (15:28)
[2018-02-19] MEDS: FENTAnyl 50 MCG/ML VIAL (15:31)
[2018-02-19] MEDS: LIDOCAINE 1% (MPF) 5 ML VIAL (15:48)
[2018-02-19] MEDS: IOHEXOL 300MG/ML 30 ML BTL (15:50)
[2018-02-19] MEDS: POTASSIUM CHLORIDE 20 MEQ POWDER FOR ORAL SOLN PO (17:39)
[2018-02-19] MEDS: D5-NS + KCL 20 MEQ 1,000 ML IV (18:54)
[2018-02-19] MEDS: ARFORMOTEROL TARTRATE 15MCG/2 ML AMP INH (19:50)
[2018-02-19] MEDS: BUDESONIDE (NEB) 0.5MG/2ML AMP HHN (19:50)
[2018-02-19] MEDS: VANCOMYCIN 500MG/NS (PMX) 100 ML IVPB (23:00)
[2018-02-20] MEDS: D5-NS + KCL 20 MEQ 1,000 ML IV ×4 (05:31→22:10)
[2018-02-20 06:33] LABS: WHITE BLOOD COUNT 42.6 10^3/ul (4.8-10.8)
[2018-02-20 06:33] LABS: ABNORMAL IP MESSAGE 1; HEMATOCRIT 34.5 % (37.0-47.0); HEMOGLOBIN 11.1 g/dl (12.0-16.0); MEAN CORPUSCULAR HEMOGLOBIN 28.1 pg (29.0-33.0); MEAN CORPUSCULAR HGB CONC 32.2 g/dl (32.0-37.0); MEAN CORPUSCULAR VOLUME 87.3 fl (82.0-101.0); MEAN PLATELET VOLUME 9.7 fl (7.4-10.4); PLATELET COUNT 473 10^3/UL (140-415); RED BLOOD COUNT 3.95 10^6/ul (4.20-5.40); RED CELL DISTRIBUTION WIDTH 15.2 % (11.5-14.5)
[2018-02-20 06:48] LABS: ADD MAN DIFF? YES; POSITIVE DIFF @See below
[2018-02-20 06:55] LABS: MAGNESIUM 2.3 mg/dl (1.7-2.5)
[2018-02-20 06:55] LABS: PHOSPHORUS 3.5 mg/dl (2.5-4.9)
[2018-02-20 06:57] LABS: ALANINE AMINOTRANSFERASE 83 IU/L (13-69); ALBUMIN 2.3 g/dl (3.3-4.9); ALBUMIN/GLOBULIN RATIO 0.71; ALKALINE PHOSPHATASE 491 IU/L (42-121); ANION GAP 13 (8-16); ASPARTATE AMINO TRANSFERASE 249 IU/L (15-46); BILIRUBIN,INDIRECT 0.2 mg/dl (0-1.1); BILIRUBIN,TOTAL 0.2 mg/dl (0.2-1.3); BLOOD UREA NITROGEN 16 mg/dl (7-20); CARBON DIOXIDE 15 mmol/L (21-31); CHLORIDE 115 mmol/L (97-110); CREATININE 1.15 mg/dl (0.44-1.00); GLUCOSE 189 mg/dl (70-220); POTASSIUM 3.9 mmol/L (3.5-5.1); SODIUM 139 mmol/L (135-144); TOTAL PROTEIN 5.5 g/dl (6.1-8.1)
[2018-02-20] MEDS: ARFORMOTEROL TARTRATE 15MCG/2 ML AMP INH ×2 (09:00→19:55)
[2018-02-20] MEDS: FAMOTIDINE 20 MG TAB PO (09:14)
[2018-02-20] MEDS: CEFEPIME 2GM/50 ML (PMX) 50 ML IVPB ×2 (09:14→20:35)
[2018-02-20] MEDS: BUDESONIDE (NEB) 0.5MG/2ML AMP HHN ×2 (09:16→19:55)
[2018-02-20 09:38] LABS: ANISOCYTOSIS 1+ (0-0); BAND NEUTROPHILS #M 2.9 10^3/ul (0.0-0.6); BAND NEUTROPHILS % (M) 7 % (0-4); LYMPHOCYTES #M 0.8 10^3/ul (0.8-2.9); LYMPHOCYTES % (M) 2 % (15-51); MONOCYTE #M 2.9 10^3/ul (0.3-0.9); MONOCYTES % (M) 7 % (0-11); PLATELET ESTIMATE NORMAL; POIKILOCYTOSIS 3+ (0-0); POLYCHROMASIA 2+ (0-0); SEGMENTED NEUTROPHILS (M) % 84 % (39-77); SMUDGE%M 1 % (0-0)
[2018-02-20] MEDS: VANCOMYCIN 500MG/NS (PMX) 100 ML IVPB (23:09)
[2018-02-21] MEDS: HYDROmorphONE 0.5 MG/0.5 ML SYG IV ×3 (00:54→17:03)
[2018-02-21] MEDS: CEFEPIME 2GM/50 ML (PMX) 50 ML IVPB ×2 (08:47→20:34)
[2018-02-21] MEDS: FAMOTIDINE 20 MG TAB PO ×2 (08:47→09:00)
[2018-02-21] MEDS: D5-NS + KCL 20 MEQ 1,000 ML IV ×2 (08:47→18:30)
[2018-02-21] MEDS: ARFORMOTEROL TARTRATE 15MCG/2 ML AMP INH ×2 (09:00→20:00)
[2018-02-21] MEDS: BUDESONIDE (NEB) 0.5MG/2ML AMP HHN ×2 (09:00→20:13)
[2018-02-21 11:36] LABS: ABNORMAL IP MESSAGE 1; HEMATOCRIT 33.4 % (37.0-47.0); MEAN CORPUSCULAR HGB CONC 32.9 g/dl (32.0-37.0); MEAN CORPUSCULAR VOLUME 88.1 fl (82.0-101.0); PLATELET COUNT 316 10^3/UL (140-415); RED BLOOD COUNT 3.79 10^6/ul (4.20-5.40); RED CELL DISTRIBUTION WIDTH 15.6 % (11.5-14.5)
[2018-02-21 11:37] LABS: POSITIVE DIFF @See below
[2018-02-21 11:38] LABS: ADD MAN DIFF? YES
[2018-02-21 11:56] LABS: INR 1.51; PROTIME 18.5 Sec (11.9-14.9); PT RATIO 1.4
[2018-02-21 11:57] LABS: PARTIAL THROMBOPLASTIN TIME 30.2 Sec (25.0-35.0)
[2018-02-21 11:59] LABS: ALANINE AMINOTRANSFERASE 84 IU/L (13-69); ALBUMIN 2.1 g/dl (3.3-4.9); ALBUMIN/GLOBULIN RATIO 0.72; ALKALINE PHOSPHATASE 444 IU/L (42-121); ANION GAP 10 (8-16); ASPARTATE AMINO TRANSFERASE 223 IU/L (15-46); BILIRUBIN,INDIRECT 0.2 mg/dl (0-1.1); BILIRUBIN,TOTAL 0.2 mg/dl (0.2-1.3); BLOOD UREA NITROGEN 16 mg/dl (7-20); CALCIUM 8.3 mg/dl (8.4-10.2); CARBON DIOXIDE 17 mmol/L (21-31); CHLORIDE 122 mmol/L (97-110); CREATININE 0.75 mg/dl (0.44-1.00); GLUCOSE 138 mg/dl (70-220); MAGNESIUM 1.8 mg/dl (1.7-2.5); POTASSIUM 3.7 mmol/L (3.5-5.1); SODIUM 145 mmol/L (135-144)
[2018-02-21 13:05] LABS: BAND NEUTROPHILS #M 0.7 10^3/ul (0.0-0.6); BAND NEUTROPHILS % (M) 2 % (0-4); LYMPHOCYTES #M 0.7 10^3/ul (0.8-2.9); LYMPHOCYTES % (M) 2 % (15-51); MONOCYTE #M 2.2 10^3/ul (0.3-0.9); MONOCYTES % (M) 6 % (0-11); PLATELET ESTIMATE NORMAL; POLYCHROMASIA 1+ (0-0); SEG NEUT #M 34.5 10^3/ul (1.6-7.5); SEGMENTED NEUTROPHILS (M) % 90 % (39-77); SMUDGE%M 7 % (0-0)
[2018-02-21] MEDS ORDERED: ASPIRIN 325 MG TAB PO (17:00)
[2018-02-21] MEDS: ASPIRIN 300 MG SUPP PR (20:34)
[2018-02-21] MEDS: FLUCONAZOLE 100 MG/50 ML (PMX) 50 ML IVPB (22:16)
[2018-02-21 22:38] LABS: VANCOMYCIN,TROUGH 8.6 ug/ml (10.0-20.0)
[2018-02-21] MEDS: VANCOMYCIN 500MG/NS (PMX) 100 ML IVPB (23:28)
[2018-02-22] MEDS: metroNIDAZOLE 500 MG/NS (PMX) 100 ML IVPB ×5 (00:24→23:49)
[2018-02-22] MEDS: D5-NS + KCL 20 MEQ 1,000 ML IV (00:24)
[2018-02-22 05:26] LABS: WHITE BLOOD COUNT 34.5 10^3/ul (4.8-10.8)
[2018-02-22 05:26] LABS: ABNORMAL IP MESSAGE 1; HEMATOCRIT 32.5 % (37.0-47.0); HEMOGLOBIN 10.4 g/dl (12.0-16.0); MEAN CORPUSCULAR HEMOGLOBIN 28.3 pg (29.0-33.0); MEAN CORPUSCULAR VOLUME 88.3 fl (82.0-101.0); MEAN PLATELET VOLUME 10.4 fl (7.4-10.4); NUCLEATED RED BLOOD CELLS% 0.1 /100WBC (0.0-0.0); PLATELET COUNT 265 10^3/UL (140-415); RED BLOOD COUNT 3.68 10^6/ul (4.20-5.40); RED CELL DISTRIBUTION WIDTH 15.9 % (11.5-14.5)
[2018-02-22 05:38] LABS: POSITIVE DIFF @See below
[2018-02-22 05:39] LABS: ADD MAN DIFF? YES
[2018-02-22 05:41] LABS: ALANINE AMINOTRANSFERASE 83 IU/L (13-69); ALBUMIN/GLOBULIN RATIO 0.74; ALKALINE PHOSPHATASE 404 IU/L (42-121); ANION GAP 7 (8-16); ASPARTATE AMINO TRANSFERASE 199 IU/L (15-46); BILIRUBIN,INDIRECT 0.2 mg/dl (0-1.1); BILIRUBIN,TOTAL 0.2 mg/dl (0.2-1.3); BLOOD UREA NITROGEN 17 mg/dl (7-20); CALCIUM 8.3 mg/dl (8.4-10.2); CARBON DIOXIDE 16 mmol/L (21-31); CHLORIDE 127 mmol/L (97-110); CREATININE 0.84 mg/dl (0.44-1.00); GLUCOSE 144 mg/dl (70-220); POTASSIUM 3.4 mmol/L (3.5-5.1); SODIUM 147 mmol/L (135-144); TOTAL PROTEIN 4.7 g/dl (6.1-8.1)
[2018-02-22 06:06] LABS: PHOSPHORUS 2.6 mg/dl (2.5-4.9)
[2018-02-22 06:06] LABS: MAGNESIUM 1.7 mg/dl (1.7-2.5)
[2018-02-22 08:34] LABS: ANISOCYTOSIS 1+ (0-0); BAND NEUTROPHILS % (M) 3 % (0-4); BURR CELLS 1+ (0-0); MONOCYTES % (M) 6 % (0-11); MYELOCYTES #M 0.3 10^3/ul (0.0-0.0); MYELOCYTES % (M) 1 % (0-0); PLATELET ESTIMATE NORMAL; POIKILOCYTOSIS 1+ (0-0); POLYCHROMASIA 1+ (0-0); PROMYELOCYTES #M 0.6 10^3/ul (0-0); PROMYELOCYTES % (M) 2 % (0-0); SEG NEUT #M 30.7 10^3/ul (1.6-7.5); SEGMENTED NEUTROPHILS (M) % 88 % (39-77); SMUDGE%M 2 % (0-0)
[2018-02-22] MEDS ORDERED: ASPIRIN (EC) 81 MG TAB PO (09:00)
[2018-02-22] MEDS: BUDESONIDE (NEB) 0.5MG/2ML AMP HHN ×2 (09:17→20:22)
[2018-02-22] MEDS: ARFORMOTEROL TARTRATE 15MCG/2 ML AMP INH ×2 (09:17→20:22)
[2018-02-22] MEDS: CEFEPIME 2GM/50 ML (PMX) 50 ML IVPB ×2 (09:57→20:48)
[2018-02-22] MEDS ORDERED: LABETALOL HCL 20MG INJ IV (10:30)
[2018-02-22] MEDS: HYDROmorphONE 1 MG/ML SYG IV ×2 (11:09→20:06)
[2018-02-22] MEDS ORDERED: hydrALAzine 20 MG INJ IV (11:30)
[2018-02-22] MEDS: FAMOTIDINE 20 MG INJ IV (12:00)
[2018-02-22] MEDS: VANCOMYCIN 500MG/NS (PMX) 100 ML IVPB (13:05)
[2018-02-22] MEDS: ASPIRIN 300 MG SUPP PR (13:09)
[2018-02-22] MEDS: D5W-0.45 NACL + KCL 40 MEQ 1,000 ML IV (17:02)
[2018-02-22] MEDS: FLUCONAZOLE 100 MG/50 ML (PMX) 50 ML IVPB (21:34)
[2018-02-23] MEDS: VANCOMYCIN 500MG/NS (PMX) 100 ML IVPB ×2 (00:53→13:45)
[2018-02-23] MEDS: D5W-0.45 NACL + KCL 40 MEQ 1,000 ML IV ×2 (02:30→10:56)
[2018-02-23] MEDS ORDERED: VITAMIN A & D 5 GM OINT PACKET TOP (03:04)
[2018-02-23 05:33] LABS: WHITE BLOOD COUNT 39.5 10^3/ul (4.8-10.8)
[2018-02-23 05:33] LABS: ABNORMAL IP MESSAGE 1; HEMATOCRIT 34.7 % (37.0-47.0); HEMOGLOBIN 10.9 g/dl (12.0-16.0); MEAN CORPUSCULAR HEMOGLOBIN 28.3 pg (29.0-33.0); MEAN CORPUSCULAR HGB CONC 31.4 g/dl (32.0-37.0); MEAN CORPUSCULAR VOLUME 90.1 fl (82.0-101.0); MEAN PLATELET VOLUME 11.4 fl (7.4-10.4); NUCLEATED RED BLOOD CELLS% 0.2 /100WBC (0.0-0.0); PLATELET COUNT 230 10^3/UL (140-415); RED BLOOD COUNT 3.85 10^6/ul (4.20-5.40); RED CELL DISTRIBUTION WIDTH 16.9 % (11.5-14.5)
[2018-02-23] MEDS: metroNIDAZOLE 500 MG/NS (PMX) 100 ML IVPB ×2 (05:41→11:02)
[2018-02-23 05:43] LABS: ADD MAN DIFF? YES; POSITIVE DIFF @See below
[2018-02-23] MEDS: HYDROmorphONE 1 MG/ML SYG IV ×2 (05:45→12:05)
[2018-02-23 06:04] LABS: ANION GAP 12 (8-16); BLOOD UREA NITROGEN 19 mg/dl (7-20); CALCIUM 8.4 mg/dl (8.4-10.2); CARBON DIOXIDE 14 mmol/L (21-31); CHLORIDE 130 mmol/L (97-110); CREATININE 0.92 mg/dl (0.44-1.00); GLUCOSE 130 mg/dl (70-220); POTASSIUM 3.8 mmol/L (3.5-5.1); SODIUM 152 mmol/L (135-144)
[2018-02-23] MEDS: BUDESONIDE (NEB) 0.5MG/2ML AMP HHN ×2 (08:16→19:52)
[2018-02-23] MEDS: ARFORMOTEROL TARTRATE 15MCG/2 ML AMP INH ×2 (08:16→19:45)
[2018-02-23 08:41] LABS: BAND NEUTROPHILS #M 1.1 10^3/ul (0.0-0.6); BAND NEUTROPHILS % (M) 3 % (0-4); BASOPHIL #M 0.3 10^3/ul (0.0-0.0); BASOPHILS % (M) 1 % (0-2); LYMPHOCYTES #M 1.1 10^3/ul (0.8-2.9); LYMPHOCYTES % (M) 3 % (15-51); METAMYELOCYTES #M 0.3 10^3/ul (0.0-0.0); METAMYELOCYTES %M 1 % (0-0); MONOCYTE #M 0.7 10^3/ul (0.3-0.9); MONOCYTES % (M) 2 % (0-11); PLATELET ESTIMATE NORMAL; POIKILOCYTOSIS 2+ (0-0); POLYCHROMASIA 1+ (0-0); PROMYELOCYTES #M 0.3 10^3/ul (0-0); PROMYELOCYTES % (M) 1 % (0-0); SEG NEUT #M 35.6 10^3/ul (1.6-7.5); SEGMENTED NEUTROPHILS (M) % 89 % (39-77); SMUDGE%M 10 % (0-0)
[2018-02-23] MEDS: CEFEPIME 2GM/50 ML (PMX) 50 ML IVPB (08:59)
[2018-02-23] MEDS: FAMOTIDINE 20 MG INJ IV (08:59)
[2018-02-23] MEDS: ASPIRIN 300 MG SUPP PR (10:55)
[2018-02-23 12:38] LABS: VANCOMYCIN,TROUGH 14.9 ug/ml (10.0-20.0)
[2018-02-23] MEDS: morphine 2 MG INJ IV (16:19)
[2018-02-24] MEDS: D5W-0.45 NACL + KCL 40 MEQ 1,000 ML IV (00:41)
[2018-02-24] MEDS: morphine 2 MG INJ IV ×3 (06:12→18:06)
[2018-02-24] MEDS: ARFORMOTEROL TARTRATE 15MCG/2 ML AMP INH (08:43)
[2018-02-24] MEDS: BUDESONIDE (NEB) 0.5MG/2ML AMP HHN (08:45)
[2018-02-24] MEDS: FAMOTIDINE 20 MG INJ IV (08:57)
== END 2018-02-24 18:33 | disposition hospice, home (50) | DRG 871 ==
LOC: E/R 16:56 → PP2 18:30
PROC: 0T9030Z Drainage of Right Kidney with Drainage Device, Percutaneous Approach (ICD-10-PCS; principal; 2018-02-19)
DX: A41.9 Sepsis, unspecified organism (principal); G93.49 Other encephalopathy; I63.9 Cerebral infarction, unspecified; C79.11 Secondary malignant neoplasm of bladder; R47.01 Aphasia; N13.30 Unspecified hydronephrosis; C53.9 Malignant neoplasm of cervix uteri, unspecified; Z93.6 Other artificial openings of urinary tract status; J43.9 Emphysema, unspecified; Z87.891 Personal history of nicotine dependence; E87.6 Hypokalemia; E83.42 Hypomagnesemia; E78.5 Hyperlipidemia, unspecified
CPT/HCPCS: 36415; 70450; 70553; 71045; 74176; 74475; 76942; 80048; 80053; 80202; 81001; 83605; 83735; 84100; 84484; 85025; 85610; 85730; 87040; 87081; 87086; 93005; 93306; 93880; 94640; 94664; 96374; 96375; 99291-25